=== PATIENT | male | born 1960 ===

== ENCOUNTER 2024-11-26 10:15 | Inpatient (IN) | payer OTHER ==
[~2024-11-26] VITALS: Wt 70.3 kg
[2024-11-26] MEDS ORDERED: LIPITOR20 MG (10:32)
[2024-11-26] MEDS ORDERED: METFORMIN HCL500 M3 PO (10:32)
[2024-11-26] MEDS ORDERED: PEPCID40 MG PO (10:32)
[2024-11-26 10:33] VITALS: BP 150/81
[2024-11-26 11:01] LABS: COVID-19 AG NEGATIVE (NEGATIVE)
[2024-11-26 11:45] LABS: RH POSITIVE
[2024-12-01] MEDS ORDERED: CEFAZOLIN SODIUM 1,000 MG VIAL IV ONE (09:00)
[2024-12-01] MEDS ORDERED: BUPIVACAINE HCL 30 ML VIAL IJ ONE (09:15)
[2024-12-01] MEDS ORDERED: ENALAPRILAT DIHYDRATE 2.5 MG/2 ML VIAL IV ONE (09:15)
[2024-12-01] MEDS ORDERED: RINGERS SOLUTION,LACTATED 1,000 ML IV SCH (12:45)
[2024-12-01] MEDS ORDERED: MORPHINE SULFATE 4 MG/ML CARTRIDGE IV PRN (12:45)
[2024-12-01] MEDS ORDERED: DEXTROSE 50 % IN WATER 0.5 G/ML VIAL IV PRN (12:45)
[2024-12-01] MEDS ORDERED: ONDANSETRON HCL 2 MG/ML VIAL IV PRN (12:45)
[2024-12-01] MEDS ORDERED: INSULIN LISPRO 1,000 UNIT/10 ML UNITS SUBCUTANEO PRN (12:45)
[2024-12-01] MEDS ORDERED: SUGAMMADEX SODIUM 200 MG/2 ML VIAL IV ONE (13:00)
[2024-12-01] MEDS ORDERED: GABAPENTIN 300 MG CAPSULE PO SCH (17:00)
[2024-12-01 18:48] VITALS: BP 164/79; O2SAT 97
[2024-12-01] MEDS ORDERED: CEFAZOLIN SODIUM 1,000 MG VIAL IV SCH (21:00)
[2024-12-01] MEDS ORDERED: FAMOTIDINE/PF 20 MG/2 ML VIAL IV SCH (21:00)
[2024-12-02 01:35] VITALS: BP 141/78; O2SAT 98
[2024-12-02 06:48] LABS: BASO % 0.2 % (0.1-1.2); EOS # 0.02 (0.04-0.54); EOS % 0.2 % (0.7-7.0); LYMPH # 1.58 (1.18-3.74); LYMPH % 15.6 % (19.3-53.1); MEAN PLATELET VOLUME 11.00 fl (9.4-12.4); MONO # 0.61 (0.24-0.82); MONO % 6.0 % (4.7-12.5); NEUT # 7.83 (1.56-6.13); NEUT % 77.6 % (34.0-71.1); RED CELL DISTRIBUTION WIDTH 12.9 % (11.6-14.4)
[2024-12-02 07:38] LABS: BUN CREA RATIO 12.0 (7.0-25.0); CREATININE SERUM 0.93 mg/dL (0.70-1.30); GFR 81.54; GLUCOSE FASTING 121.0 mg/dL (65-100); OSMOLALITY SERUM 286.0 MOSM/KG (275-295)
[2024-12-02 08:00] VITALS: BP 134/68; O2SAT 95
[2024-12-02] MEDS ORDERED: ENOXAPARIN SODIUM 40 MG/0.4 ML SYRINGE SUBCUTANEO SCH (09:00)
== END 2024-12-02 13:35 | disposition home or self-care (01) | DRG 708 ==
LOC: SURH 12-01 05:35 → O/R 12-01 05:35 → SURH 12-01 07:00
PROVIDERS: ADMIT Urology; ATTEND Urology
PROC: 07BC4ZZ Excision of Pelvis Lymphatic, Percutaneous Endoscopic Approach (ICD-10-PCS; 2024-12-01)
PROC: 8E0W4CZ Robotic Assisted Procedure of Trunk Region, Percutaneous Endoscopic Approach (ICD-10-PCS; 2024-12-01)
PROC: 0VT04ZZ Resection of Prostate, Percutaneous Endoscopic Approach (ICD-10-PCS; principal; 2024-12-01 07:00)
DX: C61 Malignant neoplasm of prostate (principal)
CPT/HCPCS: 55866; 38571; S2900